=== PATIENT | male | born 1990 | race Caucasian/White ===

== ENCOUNTER 2018-02-05 20:57 | Emergency (ER) | payer OTHER ==
[2018-02-05 21:02] VITALS: BP 109/55; PULSE 70; TEMP 98.8; BMI 26.6
--- NOTE | 2018-02-05 21:04 | PDOC ---
Rapid Medical Evaluation Chief Complaint: Diarrhea Time Seen by Provider: 02/05/18 21:03 Medical Evaluation: Allergies Allergy/AdvReac Type Severity Reaction Status Date / Time No Known Allergies Allergy Verified 02/05/18 21:02 Vital Signs Temp Pulse Resp BP Pulse Ox 98.8 F 70 18 109/55 100 02/05/18 21:00 02/05/18 21:00 02/05/18 21:00 02/05/18 21:00 02/05/18 21:00 02/05/18 21:03 I have performed a brief in-person evaluation of this patient. The patient presents with a chief complaint of:Non-bloody diarrhea w/ abd cramping w/ subj fever w/ chills since yesterday. Returned from [place] 3 days ago. No sick contacts Pertinent physical exam findings:stable and well delicia w/ benign abd I have ordered the following:labs The patient will proceed to the ED for further evaluation Discharge Disposition - Diagnosis Diarrhea Qualifiers: Diarrhea type: unspecified type Qualified Code(s): R19.7 - Diarrhea, unspecified - Referrals - Patient Instructions - Post Discharge Activity
== END 2018-02-05 22:10 | disposition left against medical advice (07) ==
LOC: JER 20:57
DX: Z53.21 Procedure and treatment not carried out due to patient leaving prior to being seen by health care provider (principal)
CPT/HCPCS: 99281-25